=== PATIENT | female | born 1945 | race Caucasian/White ===

== ENCOUNTER 2017-11-08 19:12 | Emergency (ER) | payer MEDICARE ==
[2017-11-08] MEDS ORDERED: BABY ASPIRIN 81 MG CHEW PO ONE (19:42)
[2017-11-08 19:53] LABS: BASOPHIL % 0.8 % (0.0-0.4); Basophil (Absolute #) 0.05 (0-0.4); Eosinophil % 5.9 % (0.00-5.0); Eosinophil (Absolute #) 0.37 (0-0.5); Granulocyte Absolute (ANC) 3.71 (1.4-6.9); Granulocytes % 59.2 % (36.0-66.0); Hematocrit 33.6 % (35-47); Hemoglobin 10.7 gm/dl (12.0-16.0); Lymphocyte (Absolute #) 1.58 (1.0-4.6); Lymphocytes % 25.2 % (24.0-44.0); Mean Cell Volume 78.9 fl (78-100); Mean Corpuscular Hemoglobin 25.1 pg (26-32); Mean Corpuscular Hgb Concent. 31.8 g/dl (32-36); Monocyte (Absolute #) 0.56 (0.0-1.3); Monocytes % 8.9 % (0.0-12.0); Platelet Count 323 K/mm3 (150-450); Red Blood Count 4.26 M/mm3 (4.1-5.4); Red Cell Distribution Width 17.1 % (11.5-14.0); White Blood Count 6.3 K/mm3 (4.0-10.5)
[2017-11-08 20:00] LABS: ALBUMIN 4.5 g/dL (3.5-5.0); ANION GAP 15.8 MEQ/L (5-15); BILIRUBIN,TOTAL 0.2 mg/dL (0.2-1.3); Calcium 9.5 mg/dL (8.4-10.2); Creatinine 1 1.05 mg/dL (0.52-1.04); Potassium 3.9 mmol/L (3.5-5.1); Total Protein 7.4 g/dL (6.3-8.2)
[2017-11-08] MEDS ORDERED: BABY ASPIRIN 81 MG CHEW ONE (20:08)
--- NOTE | 2017-11-08 20:12 | ERPHSYRPT ---
- History of Present Illness Time Seen by Provider: 11/08/17 19:20 Historian: patient, family Exam Limitations: no limitations Patient Subjective Stated Complaint: PT CO INTERMITTENT CHEST PAIN FOR 3 DAYS; STATES SHE IS NOT IN PAIN UPON ARRIVAL TO ER; HAD CHEST PAIN ONE TIME EARLIER TODAY THAT LASTED APPROX 5 SECS; STATES SHE HAS HAD ONE OR TWO EPISODES OF CHEST PAIN EACH DAY FOR 3 DAYS; CALLED HER FAMILY DR BUT COULD NOT GET IN TO THEM THIS WEEK AND WAS ADVISED IF SHE IS HAVING CHEST PAIN SHE NEEDED TO GO TO THE ER. Triage Nursing Assessment: PT A&O X3; SKIN P, W, & D; NO OBVIOUS DISTRESS NOTED ; PT DENIES ANY PAIN UPON ARRIVAL; FAMILY AT BEDSIDE. Physician History: 71 y/o white female with no h/o cardiac issues, presents with 3 day h/o mild substernal cp. no pain on arrival. pt takes 3 baby asa in am and 3 every pm. no specific acitivity causes pain. no soa. pt told by pcp to go to ER because they cannot see her now. Timing/Duration: day(s) (3) Activities at Onset: none Quality: sharpness, stabbing Location: substernal Chest Pain Radiation: no radiation Severity of Pain-Max: mild Severity of Pain-Current: none Modifying Factors: Improves With: nothing Associated Symptoms: denies symptoms, No nausea, No vomiting, No palpitations, No heartburn, No abdominal pain, No shortness of breath, No cough, No hurts to breathe Prior Chest Pain/Cardiac Workup: no prior cardiac workup Nitro Today/Relief: no nitro taken today Aspirin Treatment Today: 81 mg x 3, provided at home Allergies/Adverse Reactions: Penicillins Allergy (Severe, Verified 11/08/17 19:32) Hives Home Medications: ALPRAZolam [Alprazolam] 11/08/17 [History] Furosemide 20 mg [Lasix 20 mg] 11/08/17 [History] Potassium Chloride 20 Meq [Klor-Con 20 MEQ] 11/08/17 [History] Pravastatin Sodium 11/08/17 [History] Sertraline HCl 11/08/17 [History] Hx Tetanus, Diphtheria Vaccination/Date Given: Yes Hx Influenza Vaccination/Date Given: Yes Hx Pneumococcal Vaccination/Date Given: Yes Immunizations Up to Date: Yes - Review of Systems Constitutional: No Symptoms, No Fever, No Chills, No Weakness Eyes: No Symptoms Ears, Nose, & Throat: No Symptoms, No Ear Pain Respiratory: No Symptoms, No Cough, No Dyspnea, No Stridor, No Wheezing Cardiac: Chest Pain Abdominal/Gastrointestinal: No Symptoms, No Abdominal Pain, No Nausea, No Vomiting, No Diarrhea Genitourinary Symptoms: No Symptoms, No Dysuria, No Frequency, No Hematuria Musculoskeletal: No Symptoms Skin: No Symptoms Neurological: No Symptoms Psychological: No Symptoms Endocrine: No Symptoms Hematologic/Lymphatic: No Symptoms Immunological/Allergic: No Symptoms - Past Medical History Pertinent Past Medical History: Yes Neurological History: No Pertinent History ENT History: No Pertinent History Cardiac History: High Cholesterol, Hypertension Respiratory History: No Pertinent History Endocrine Medical History: No Pertinent History Musculoskeletal History: No Pertinent History GI Medical History: Hernia History: No Pertinent History Psycho-Social History: Depression Female Reproductive Disorders: No Pertinent History - Past Surgical History Past Surgical History: Yes Neuro Surgical History: No Pertinent History Cardiac: No Pertinent History Respiratory: No Pertinent History Gastrointestinal: No Pertinent History, Hernia Repair Genitourinary: No Pertinent History Musculoskeletal: No Pertinent History Female Surgical History: Hysterectomy - Social History Smoking Status: Current every day smoker How long have you smoked: 30 Exposure to second hand smoke: No Drug Use: none Patient Lives Alone: No Significant Family History: no pertinent family hx - Female History Hx Last Menstrual Period: PARTIAL HYST; POST MENOPAUSAL Hx Now: No - Nursing Vital Signs Nursing Vital Signs: Initial Vital Signs Temperature 98 F 11/08/17 19:14 Pulse Rate 92 H 11/08/17 19:14 Respiratory Rate 18 11/08/17 19:14 Blood Pressure 169/72 11/08/17 19:14 O2 Sat by Pulse Oximetry 95 11/08/17 19:14 Pain Scale Pain Intensity 0 - Physical Exam General Appearance: no apparent distress, alert, anxiety Eye Exam: PERRL/EOMI, eyes nml inspection Ears, Nose, Throat Exam: normal ENT inspection Neck Exam: normal inspection, non-tender, supple, full range of motion Respiratory Exam: normal breath sounds, lungs clear, airway intact, No chest tenderness, No respiratory distress Cardiovascular Exam: regular rate/rhythm, normal heart sounds, normal peripheral pulses Gastrointestinal/Abdomen Exam: soft, normal bowel sounds, No tenderness, No guarding, No rebound Pelvic Exam: not done Rectal Exam: deferred Back Exam: normal inspection, normal range of motion, No vertebral tenderness Extremity Exam: normal inspection, normal range of motion, pelvis stable Neurologic Exam: alert, oriented x 3, cooperative, natural resource officer II-XII nml as tested, normal mood/affect Skin Exam: normal color, warm, dry Lymphatic Exam: No adenopathy SpO2 Interpretation: borderline oxygenation SpO2: 95 Oxygen Delivery: Room Air - Course Nursing assessment & vital signs reviewed: Yes EKG Interpreted by Me: RATE (84), NORMAL AXIS, NORMAL INTERVALS, NORMAL QRS, NORMAL ST-T Ordered Tests: Active Orders 24 hr Category Date Time Status Hatchery Man STAT Care 11/08/17 19:45 Active EKG-ER Only STAT Care 11/08/17 19:42 Active IV Insertion STAT Care 11/08/17 19:42 Active Oxygen-ED Only NASAL CANNULA 2 lpm Care 11/08/17 19:42 Active CHEST 1 VIEW (PORTABLE) Stat Exams 11/08/17 19:45 Taken CBC W DIFF Stat Lab 11/08/17 19:42 Completed CMP Stat Lab 11/08/17 19:42 Completed NT PRO BNP Stat Lab 11/08/17 19:42 Completed TROPONIN Q3H Lab 11/08/17 19:42 Completed TROPONIN Q3H Lab 11/08/17 22:45 Ordered TROPONIN Q3H Lab 11/09/17 01:45 Ordered TROPONIN Q3H Lab 11/09/17 04:45 Ordered TROPONIN Q3H Lab 11/09/17 07:45 Ordered Medication Summary Discontinued Medications Generic Name Dose Route Start Last Admin Trade Name Freq PRN Reason Stop Dose Admin Aspirin 324 mg 11/08/17 19:42 11/08/17 20:09 Baby Aspirin 81 Mg Chew PO 11/08/17 19:43 Not Given STAT ONE Aspirin Confirm 11/08/17 20:08 Baby Aspirin 81 Mg Chew Administered 11/08/17 20:09 Dose 81 mg .ROUTE .STK-MED ONE Lab/Rad Data: Laboratory Result Diagrams 11/08/17 19:42 11/08/17 19:42 Laboratory Results 11/08/17 11/08/17 11/08/17 Range/Units 19:42 19:42 19:42 WBC 6.3 (4.0-10.5) K/mm3 RBC 4.26 (4.1-5.4) M/mm3 Hgb 10.7 L (12.0-16.0) gm/dl Hct 33.6 L (35-47) % MCV 78.9 (78-100) fl MCH 25.1 L (26-32) pg MCHC 31.8 L (32-36) g/dl RDW 17.1 H (11.5-14.0) % Plt Count 323 (150-450) K/mm3 MPV 11.0 H (6-9.5) fl Gran % 59.2 (36.0-66.0) % Eos # (Auto) 0.37 (0-0.5) Absolute Lymphs (auto) 1.58 (1.0-4.6) Absolute Monos (auto) 0.56 (0.0-1.3) Lymphocytes % 25.2 (24.0-44.0) % Monocytes % 8.9 (0.0-12.0) % Eosinophils % 5.9 H (0.00-5.0) % Basophils % 0.8 (0.0-0.4) % Absolute Granulocytes 3.71 (1.4-6.9) Basophils # 0.05 (0-0.4) Sodium 139 (137-145) mmol/L Potassium 3.9 (3.5-5.1) mmol/L Chloride 101 (98-107) mmol/L Carbon Dioxide 27 (22-30) mmol/L Anion Gap 15.8 H (5-15) MEQ/L BUN 9 (7-17) mg/dL Creatinine 1.05 H (0.52-1.04) mg/dL Estimated GFR 54.8 ML/MIN Glucose 113 H (74-106) mg/dL Calcium 9.5 (8.4-10.2) mg/dL Total Bilirubin 0.20 (0.2-1.3) mg/dL AST 20 (14-36) U/L ALT 10 (0-35) U/L Alkaline Phosphatase 116 (38-126) U/L Troponin I < 0.012 (0.000-0.034) ng/mL NT-Pro-B Natriuret Pep 772 (0-900) pg/mL Serum Total Protein 7.4 (6.3-8.2) g/dL Albumin 4.5 (3.5-5.0) g/dL - Progress Progress: improved, re-examined Air Movement: good Progress Note: 11/08/17 21:08 pt is doing well and wants to go home. Blood Culture(s) Obtained: No Antibiotics given: No Counseled pt/family regarding: lab results, diagnosis, need for follow-up, rad results - Departure Time of Disposition: 21:08 Departure Disposition: Home Clinical Impression: Chest pain Condition: Good Critical Care Time: No Referrals: CORTES MEDINA MD [Primary Care Provider] - Additional Instructions: take medications as prescribed. follow up with primary doctor tomorrow to arrange outpatient appointment and further management
[2017-11-08 21:16] VITALS: BP 158/54; PULSE 69; O2SAT 96
--- NOTE | 2017-11-09 08:52 | XRAY ---
Indication: Left-sided chest pain. Comparison: None Portable chest clear with incidental left base calcified granuloma. Heart is not enlarged for AP portable technique. Moderate size hiatal hernia. Bony thorax intact with mild osteopenia and degenerative changes. Impression: Nonacute chest with chronic features.
== END 2017-11-08 21:24 | disposition home or self-care (01) ==
LOC: ED 19:12
DX: R07.9 Chest pain, unspecified (principal); Z79.899 Other long term (current) drug therapy
CPT/HCPCS: 36000; 36415; 71045; 80053; 83880; 84484; 85025; 93005; 93041; 99284; A9270-GY